=== PATIENT | male | born 1955 | race African-American/Black ===

== ENCOUNTER 2016-12-14 08:45 | Emergency (ER) | payer MEDICAID, MEDICARE ==
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
--- NOTE | 2016-12-14 10:34 | Diagnostic Imaging Report ---
Right ankle 3 views Indication: Trauma Comparison: none Findings: Osteopenia is noted. Minimal degenerative changes are noted. Calcification of the tibiofibular synostosis is seen possibly due to old ligamentous injury. No evidence of an acute fracture or focal soft tissue swelling. Impression: No evidence of an acute fracture. Osteopenia. In the setting of trauma, if clinical symptoms persist and there is continued concern for an occult fracture, follow up exams in 5-7 days is suggested.
== END 2016-12-14 11:03 | disposition home or self-care (01) ==
LOC: ER 08:45
DX: S93.401A Sprain of unspecified ligament of right ankle, initial encounter (principal); I10 Essential (primary) hypertension; W19.XXXA Unspecified fall, initial encounter; Y93.89 Activity, other specified; Y92.89 Other specified places as the place of occurrence of the external cause; Y99.8 Other external cause status
CPT/HCPCS: 73610-RT-TC; Z7502